=== PATIENT | male | born 1975 | race Two or more races ===

== ENCOUNTER 2018-06-15 22:24 | Emergency (ER) | payer OTHER ==
[~2018-06-15] VITALS: Ht 172.7 cm; Wt 90.7 kg
[2018-06-15] MEDS ORDERED: ZANTAC150 M3 (22:38)
[2018-06-16] MEDS ORDERED: ZOFRAN ODT8 MG PO (04:11)
[2018-06-16] MEDS ORDERED: LEVSIN/SL0.125 MG SL (04:11)
[2018-06-16] MEDS ORDERED: PEPCID40 MG PO (04:11)
== END 2018-06-16 04:44 | disposition home or self-care (01) ==
LOC: ER 22:24
DX: K29.70 Gastritis, unspecified, without bleeding (principal); R10.13 Epigastric pain